=== PATIENT | female | born 1955 | race Caucasian/White ===

== ENCOUNTER 2021-08-14 12:18 | Day surgery (SDC) | payer MEDICAID ==
[2021-08-12 15:13] LABS: BASOPHILS % (AUTO) 0.6 % (0-1); EOSINOPHILS # (AUTO) 0.1 X10'3 (0-0.9); EOSINOPHILS % (AUTO) 1.3 % (0-6); LYMPHOCYTES # (AUTO) 1.9 X10'3 (1.1-4.8); LYMPHOCYTES % (AUTO) 25.2 % (21-51); MEAN CORPUSCULAR HEMOGLOBIN 29.1 PG (27.0-31.0); MEAN CORPUSCULAR HGB CONC 33.9 g/dL (33.0-36.5); MEAN CORPUSCULAR VOLUME 85.8 FL (78-98); MEAN PLATELET VOLUME 6.3 FL (7.4-10.4); MONOCYTES # (AUTO) 0.7 X10'3 (0-0.9); MONOCYTES % (AUTO) 8.9 % (2-12); NEUTROPHILS # (AUTO) 4.8 X10'3 (1.8-7.7); PRE OP HEMATOCRIT 38.3 % (35.0-45.0); PRE OP PLATELET COUNT 362 X10'3 (140-440); RED BLOOD COUNT 4.46 X10'6 (4.20-5.60); RED CELL DISTRIBUTION WIDTH 13.7 % (11.5-14.5)
[2021-08-12 15:17] LABS: ALBUMIN 3.6 G/DL (3.4-5.0); ALBUMIN/GLOBULIN RATIO 0.9 (1.1-1.5); ALKALINE PHOSPHATASE 87 IU/L (46-116); BLOOD UREA NITROGEN 18 MG/DL (7-18); BUN/CREATININE RATIO 19.8 (6.6-38.0); CALCIUM 9.3 MG/DL (8.5-10.1); CHLORIDE 102 MMOL/L (99-107); CREATININE 0.91 MG/DL (0.40-0.90); PRE OP ALT 20 U/L (30-65); PRE OP ANION GAP 7 (8-16); PRE OP AST 12 U/L (10-37); PRE OP BILIRUB, TOTAL 0.2 MG/DL (0.0-1.0); PRE OP GLUCOSE 94 MG/DL (70-104); PRE OP POTASSIUM 4.7 MMOL/L (3.4-5.1); PRE OP SODIUM 138 MMOL/L (135-145); TOTAL CARBON DIOXIDE 29.4 MMOL/L (24-32); TOTAL PROTEIN 7.6 G/DL (6.4-8.2); eGFR 62 ML/MIN
[2021-08-14] VITALS (10 sets, daily range): BP systolic 118–139; BP diastolic 72–87
[~2021-08-14] VITALS: Ht 167.6 cm; Wt 78.8 kg
[~2021-08-14 12:18] MED LIST: DOCUMENT DATE & TIME OF BETA-BLOCKER PO ONE; ESTR1TAB28 PO; GABA300C PO; INDLA80C PO; MEDR2.5T7 PO; SUMA100T16 PO; ZOLP10TA PO; cefazolin/dext.iso 2gm/50ml 50 ML IV ONE; famotidine 20mg tablet PO ONE; ringers solution, lacted 1,000 ML IV SCH
[2021-08-14] MEDS ORDERED: labetalol 20mg/4ml (5mg/ml) syringe IV PRN (13:15)
[2021-08-14] MEDS ORDERED: morphine 2 MG/ML inj. syringe IV PRN (13:15)
[2021-08-14] MEDS ORDERED: fentaNYL/PF 50MCG/1 ML 2ML syringe IV PRN ×2 (13:15)
[2021-08-14] MEDS ORDERED: morphine 4 MG/ML inj SYRINge IV PRN (13:15)
[2021-08-14] MEDS ORDERED: hydrALAZINE 20mg/ml inj. IV PRN (13:15)
[2021-08-14] MEDS ORDERED: ondansetron/PF 4mg/2ml inj IV PRN (13:15)
[2021-08-14] MEDS ORDERED: ringers solution, lacted 1,000 ML IV SCH (13:15)
[2021-08-14] MEDS ORDERED: BUPIVAcaine 0.5% inj/PF 30 ML ONE (14:56)
[2021-08-14] MEDS ORDERED: LIDOcaine 1% 30ml preserv. free vial ONE (14:56)
[2021-08-14] MEDS ORDERED: BUPIVACAINE liposomal/PF 13.3 MG/ML vial IM ONE (14:58)
[2021-08-14] MEDS ORDERED: BUPIVAcaine/PF 2.5mg/ml (0.25%) 10ml vial ONE (14:58)
[2021-08-14] MEDS ORDERED: fentaNYL/PF 50MCG/1 ML 2ML syringe ONE (15:11)
[2021-08-14] MEDS ORDERED: propofol inj 20 ML IV ONE (15:19)
[2021-08-14] MEDS ORDERED: LIDOcaine 2% (20mg/ml) 5ml vial ONE (15:19)
[2021-08-14] MEDS ORDERED: rocuronium 10mg/ml inj IV ONE ×2 (15:20)
[2021-08-14] MEDS ORDERED: glycopyrrolate 0.2mg/ml inj ONE (15:22)
[2021-08-14] MEDS ORDERED: ondansetron/PF 4mg/2ml inj ONE (15:22)
[2021-08-14] MEDS ORDERED: labetalol 20mg/4ml (5mg/ml) syringe IV ONE (15:33)
--- NOTE | 2021-08-14 16:50 | NUR ---
ARRIVED TO THE RECOVERY ROOM VIA GURNEY ACCOMPANIED BY DR LUCIO, ANESTHESIA - REPORT GIVEN, VSS, PT WAKING UP, DENIES PAIN, PIV 20G LEFT HAND, SCDS ON, LAP SITES X 3-CDI WITH ABD BINDER ON, PT HAD F/C IN PLACE UPON ARRIVAL-D/CD BALLOON INTACT.
[2021-08-14] MEDS ORDERED: oxyCODONE/APAP 10/325mg tablet PO PRN (17:15)
--- NOTE | 2021-08-14 19:00 | NUR ---
PT DRESSED, VSS, PAIN TOLERABLE-GIVEN 1 PERCOCET AND IS WAITING FOR TO ARRIVE, ALSO HAD WRONG ON ESCRIPTED RX FOR PAIN MEDS SO DR. CASTRO WROTE PAPER SCRIPT INSTEAD. PIV D/CD- CANULA INTACT, LAP SITES X 3-CDI WITH ABD BINDER. D/C INSTRUCTIONS GIVEN TO PT-ALL QUESTIONS ANSWERED, TAKEN VIA W/C WITH BELONGINGS TO VEHICLE WITH .
== END 2021-08-14 19:00 | disposition home or self-care (01) ==
LOC: PAS 12:18
PROVIDERS: ATTEND Surgery
DX: K43.2 Incisional hernia without obstruction or gangrene (principal); G43.909 Migraine, unspecified, not intractable, without status migrainosus; F32.9 Major depressive disorder, single episode, unspecified; E66.9 Obesity, unspecified; Z68.29 Body mass index [BMI] 29.0-29.9, adult; Z20.822 Contact with and (suspected) exposure to COVID-19; Z79.899 Other long term (current) drug therapy; Z98.890 Other specified postprocedural states; Z82.3 Family history of stroke; Z83.3 Family history of diabetes mellitus
CPT/HCPCS: 36415; 49654; 80053; 82948; 85025; 87635; 93005; C9290; C9803; J2001; J2405; J2704; J3010; J3490; S2900; Z7512; A4215; A4618; C1758; C1781; J7120